=== PATIENT | female | born 1960 | race Caucasian/White ===

== ENCOUNTER → 2017-05-08 | Outpatient (CLI) | payer OTHER ==
[2017-05-08 12:56] LABS: ASPARTATE AMINO TRANSFERASE 15 U/L (15-37); BLOOD UREA NITROGEN 10 mg/dL (7-18)
== END | disposition home or self-care (01) ==
LOC: CFH 06:58
PROVIDERS: ATTEND Family Medicine
DX: E03.9 Hypothyroidism, unspecified (principal); I10 Essential (primary) hypertension; K21.9 Gastro-esophageal reflux disease without esophagitis
CPT/HCPCS: 36415; 80053; 80061; 84439; 84443

== ENCOUNTER → 2017-05-09 | Outpatient (CLI) | payer OTHER | END | disposition home or self-care (01) | LOC: CFH 13:58 | PROVIDERS: ATTEND Family Medicine | DX: Z12.31 Encounter for screening mammogram for malignant neoplasm of breast (principal) | CPT/HCPCS: 77063; G0202 ==

== ENCOUNTER → 2017-09-03 | Outpatient (CLI) | payer OTHER | END | disposition home or self-care (01) | LOC: CVU 12:30 | PROVIDERS: ATTEND Family Medicine | DX: R00.2 Palpitations (principal); R06.02 Shortness of breath; I10 Essential (primary) hypertension | CPT/HCPCS: 93225; 93306 ==

== ENCOUNTER → 2018-10-18 | Outpatient (CLI) | payer OTHER | END | disposition home or self-care (01) | LOC: CFH 07:04 | PROVIDERS: ATTEND Family Medicine | DX: Z12.31 Encounter for screening mammogram for malignant neoplasm of breast (principal); Z13.6 Encounter for screening for cardiovascular disorders; N63.20 Unspecified lump in the left breast, unspecified quadrant; E78.2 Mixed hyperlipidemia; E78.00 Pure hypercholesterolemia, unspecified; I10 Essential (primary) hypertension; Z80.3 Family history of malignant neoplasm of breast; Z82.49 Family history of ischemic heart disease and other diseases of the circulatory system | CPT/HCPCS: 75571; 77063; 77067 ==

== ENCOUNTER 2018-10-23 06:40 | Outpatient (CLI) | payer OTHER | END 2018-10-23 23:59 | disposition home or self-care (01) | LOC: CFH 06:40 | PROVIDERS: ATTEND Family Medicine | DX: R92.8 Other abnormal and inconclusive findings on diagnostic imaging of breast (principal); R59.0 Localized enlarged lymph nodes; Z80.3 Family history of malignant neoplasm of breast | CPT/HCPCS: 76377; 76641; 77065 ==

== ENCOUNTER → 2018-10-24 | Outpatient (CLI) | payer OTHER ==
[~2018-10-24] MED LIST: LIDOCAINE 1%, 20ML ONE; LIDOCAINE 1%-EPI 1:100K, 20ML ONE; SODIUM BICARBONATE 4.0%, 5ML ONE
== END | disposition home or self-care (01) ==
LOC: CFH 06:33
PROVIDERS: ATTEND Family Medicine
DX: N63.20 Unspecified lump in the left breast, unspecified quadrant (principal)
CPT/HCPCS: 19083; 77065; 88305; 88341; 88342; J3490; 19285

== ENCOUNTER 2018-11-21 07:12 | Outpatient (CLI) | payer OTHER ==
[2018-11-21] MEDS ORDERED: HYDR25TA6 PO (08:15)
[2018-11-21] MEDS ORDERED: MAGN400T7 PO (08:15)
[2018-11-21] MEDS ORDERED: RANI300C PO (08:15)
[2018-11-21] MEDS ORDERED: ASPI-496 PO (08:15)
[2018-11-21] MEDS ORDERED: DULO60CA7 PO (08:15)
[2018-11-21] MEDS ORDERED: POTA20TA89 PO (08:15)
[2018-11-21] MEDS ORDERED: LEVO75TA PO (08:15)
[2018-11-21 08:57] LABS: ALANINE AMINOTRANSFERASE 17 U/L (12-78); ALBUMIN 4.3 g/dL (3.4-5.0); ANION GAP 5 mmol/L (5-15); CALCIUM 9.6 mg/dL (8.5-10.1); CHLORIDE 103 mmol/L (98-107); CREATININE 1.01 mg/dL (0.55-1.02)
[2018-11-21 08:59] LABS: ALKALINE PHOSPHATASE 53 U/L (45-117); BILIRUBIN,TOTAL 0.4 mg/dL (0.2-1.0)
== END 2018-11-21 23:59 | disposition home or self-care (01) ==
LOC: STAR 07:12
PROVIDERS: ATTEND Surgery
DX: R59.1 Generalized enlarged lymph nodes (principal)
CPT/HCPCS: 36415; 80053

== ENCOUNTER 2018-11-25 06:03 | Day surgery (SDC) | payer OTHER ==
[~2018-11-25] VITALS: Ht 177.8 cm; Wt 92.0 kg
[~2018-11-25 06:03] MED LIST changes: +ASPI-496 PO; +DULO60CA7 PO; +HYDR25TA6 PO; +LEVO75TA PO; -LIDOCAINE 1%, 20ML ONE; -LIDOCAINE 1%-EPI 1:100K, 20ML ONE; +MAGN400T7 PO; +POTA20TA89 PO; +RANI300C PO; -SODIUM BICARBONATE 4.0%, 5ML ONE
[2018-11-25 06:36] VITALS: BP 127/86
[2018-11-25] MEDS ORDERED: LACTATED RINGERS 1,000 ML IV SCH (06:55)
[2018-11-25] MEDS ORDERED: BUPIVACAINE/PF-EPI 0.5% 1:200K ONE (06:56)
[2018-11-25] MEDS ORDERED: FENTANYL PF 100 MCG/2ML ONE (07:20)
[2018-11-25] MEDS ORDERED: MIDAZOLAM 1 MG/ML, 2ML ONE (07:20)
[2018-11-25] MEDS ORDERED: KETOROLAC 30 MG/1 ML ONE (07:24)
[2018-11-25] MEDS ORDERED: HYDROmorphone 2 MG/ML, 1ML IVPush PRN (07:30)
[2018-11-25] MEDS ORDERED: MEPERIDINE/PF 25MG/0.5ML IVPush PRN (07:30)
[2018-11-25] MEDS ORDERED: OXYcodone 5 MG/5 ML ORAL.SOL UDC PO PRN (07:30)
[2018-11-25] MEDS ORDERED: DIPHENHYDRAMINE 50 MG/ML, 1ML IVPush PRN (07:30)
[2018-11-25] MEDS ORDERED: HALOPERIDOL 5 MG/ML IV PRN (07:30)
[2018-11-25] MEDS ORDERED: METOPROLOL 1 MG/ML, 5ML IV PRN (07:30)
[2018-11-25] MEDS ORDERED: LABETALOL 5MG/ML, 20ML IV PRN (07:30)
[2018-11-25] MEDS ORDERED: FENTANYL PF 100 MCG/2ML IV PRN (07:30)
[2018-11-25] MEDS ORDERED: hydrALAzine 20 MG/ML, 1ML IV PRN (07:30)
[2018-11-25] MEDS ORDERED: PROMETHAZINE 25 MG/ML, 1ML IV PRN (07:30)
[2018-11-25] MEDS ORDERED: PROCHLORPERAZINE 5 MG/ML, 2ML IV PRN (07:30)
[2018-11-25] MEDS ORDERED: ONDANSETRON 2MG/ML, 2ML ONE (07:31)
[2018-11-25] MEDS ORDERED: DEXAMETHASONE 4 MG/ML, 1ML ONE (07:31)
[2018-11-25] MEDS ORDERED: CEFAZOLIN 1,000 MG ONE (07:31)
[2018-11-25] MEDS ORDERED: PROPOFOL 10 MG/ML, 20ML ONE (07:31)
[2018-11-25] MEDS ORDERED: OXYcodone 5 MG/5 ML ORAL.SOL UDC ONE (08:22)
== END 2018-11-25 10:00 | disposition home or self-care (01) ==
LOC: OUT 06:03
PROVIDERS: ATTEND Surgery
DX: R59.1 Generalized enlarged lymph nodes (principal); I10 Essential (primary) hypertension; E03.9 Hypothyroidism, unspecified; F41.8 Other specified anxiety disorders; K21.9 Gastro-esophageal reflux disease without esophagitis; Z79.890 Hormone replacement therapy; Z79.82 Long term (current) use of aspirin; Z79.899 Other long term (current) drug therapy; Z87.891 Personal history of nicotine dependence; Z98.890 Other specified postprocedural states; Z90.49 Acquired absence of other specified parts of digestive tract
CPT/HCPCS: 38525; 76098; 88305; 88331; 88341; 88342; J0690; J1100; J1885; J2250; J2405; J2704; J3010; J7120

== ENCOUNTER 2019-01-29 07:03 | Emergency (ER) | payer OTHER ==
[~2019-01-29] VITALS: Ht 177.8 cm; Wt 93.2 kg
[2019-01-29 07:08] VITALS: BP 155/95
[2019-01-29] MEDS ORDERED: DIPH,PERTUSS(ACELL),TET VAC/PF 0.5 ML IM-VACC ONE ×2 (07:30→07:50)
--- NOTE | 2019-01-29 07:39 | NUR ---
RIGHT LOWER LEG LACERATION
[2019-01-29] MEDS ORDERED: LIDOCAINE 1%-EPI 1:100K, 20ML ONE (07:50)
[2019-01-29] MEDS ORDERED: LIDOCAINE-MPF 1%, 5ML ONE (07:50)
[2019-01-29] MEDS ORDERED: LIDOCAINE 1%-EPI 1:100K, 20ML SQ ONE (08:00)
--- NOTE | 2019-01-29 09:43 | NUR ---
wound dressing was applied per md order given extra dressing stuffs for changing wound dressing pt understood dc instruction
== END 2019-01-29 09:46 | disposition home or self-care (01) ==
LOC: ED 08:58
DX: S81.811A Laceration without foreign body, right lower leg, initial encounter (principal); X58.XXXA Exposure to other specified factors, initial encounter; Y93.89 Activity, other specified; Y92.89 Other specified places as the place of occurrence of the external cause; Y99.8 Other external cause status
CPT/HCPCS: 12032; 73590; 90471; 90715; 99284; J3490